=== PATIENT | female | born 1965 | race African-American/Black ===

== ENCOUNTER 2016-09-22 18:59 | Emergency (ER) | payer SELFPAY ==
[~2016-09-22] VITALS: Ht 152.4 cm; Wt 100.0 kg
[~2016-09-22 18:59] MED LIST: AMOXICILLIN500 MG PO; ASPIRIN81 MG PO; CYCLOBENZAPR10 MG PO; GABAPENTIN300 MG PO; HYDROCHLOROT12.5 MG PO; LIPITOR10 MG PO; LISINOP/HCTZ1 TA1 PO; NAPROSYN250 MG PO; NAPROSYN375 MG PO; NAPROSYN500 MG PO; NAPROXEN250 MG PO; NEURONTIN300 MG PO; PAXIL30 MG PO; PENICILLN VK500 MG PO; TRAZODONE50 MG PO; ULTRAM50 M1 PO
[2016-09-22] MEDS ORDERED: NEURONTIN600 MG PO (19:24)
[2016-09-22] MEDS ORDERED: BACLOFEN10 MG PO (19:28)
[2016-09-22] MEDS ORDERED: NOVOLOG MIX100 U/ML SC (19:28)
[2016-09-22] MEDS ORDERED: LORTAB 5/3255 MG PO (19:48)
[2016-09-22 19:59] VITALS: BP 154/89
== END 2016-09-22 20:09 | disposition home or self-care (01) | DRG 552 ==
LOC: ED 18:59
DX: M54.5 Low back pain (principal); I10 Essential (primary) hypertension; G89.29 Other chronic pain; M19.90 Unspecified osteoarthritis, unspecified site; E11.9 Type 2 diabetes mellitus without complications; Z79.4 Long term (current) use of insulin; Z86.73 Personal history of transient ischemic attack (TIA), and cerebral infarction without residual deficits

== ENCOUNTER 2016-10-12 12:45 | Emergency (ER) | payer OTHER ==
[~2016-10-12] VITALS: Ht 152.4 cm; Wt 110.0 kg
[~2016-10-12 12:45] MED LIST changes: +BACLOFEN10 MG PO; +LORTAB 5/3255 MG PO; +NEURONTIN600 MG PO; +NOVOLOG MIX100 U/ML SC
[2016-10-12 13:24] LABS: HEMATOCRIT 38.6 % (37.0-47.0); IMMATURE GRANULOCYTES 0.5 % (0.0-1.0); MEAN CELL VOLUME 87.5 fL CALC (80.0-100.0); MEAN CORPUSCULAR HGB 27.2 pG CALC (26.0-32.0); MEAN CORPUSCULAR HGB CONC 31.1 g/L CALC (32.0-36.0); NEUT# 10.2 thou/uL (2.00-7.15); RED BLOOD COUNT 4.41 mill/uL (4.20-5.60); RED CELL DISTRI WIDTH 13.7 % (11.5-15.5)
[2016-10-12 13:36] LABS: ALBUMIN 3.7 g/dL (3.2-5.0); ALKALINE PHOSPHATASE 101 u/l (38-126); AMYLASE 59 u/l (30-110); ANION GAP 13 (6-22 (CALC)); BILIRUBIN, TOTAL 0.3 mg/dL (0.0-1.4); BUN 17 mg/dL (7-17); BUN/CREATININE RATIO 27 (12-20 (CALC)); CALCIUM 8.9 mg/dL (8.4-10.2); CARBON DIOXIDE 32 mmol/l (22-30); CHLORIDE 99 mmol/l (95-108); CREATININE 0.6 mg/dL (0.5-1.0); GFR > 60 ML/MIN (>=60 (CALC)); GFR FOR AFR.AMER. > 60 ML/MIN (>=60 (CALC)); GLUCOSE 302 mg/dL (65-105); LIPASE 57 u/l (23-300); POTASSIUM 3.9 mmol/l (3.5-5.1); SGOT/AST 21 u/l (14-36); SGPT/ALT 23 u/l (9-52); SODIUM 140 mmol/l (137-146); TOTAL PROTEIN 6.9 g/dL (6.3-8.2)
[2016-10-12 13:48] LABS: MYOGLOBIN 10 ng/mL (0 - 62)
[2016-10-12] MEDS ORDERED: PREDNISONE10 MG PO (15:51)
[2016-10-12] MEDS ORDERED: LORTAB 5-325 MG1 TAB PO (15:51)
[2016-10-12 15:56] VITALS: BP 101/50
== END 2016-10-12 16:10 | disposition home or self-care (01) | DRG 392 ==
LOC: ED 12:45
PROVIDERS: Emergency Medicine
DX: R10.12 Left upper quadrant pain (principal); I10 Essential (primary) hypertension; M79.605 Pain in left leg; G89.29 Other chronic pain; M19.90 Unspecified osteoarthritis, unspecified site; E11.9 Type 2 diabetes mellitus without complications; R07.9 Chest pain, unspecified; Z79.4 Long term (current) use of insulin; Z86.73 Personal history of transient ischemic attack (TIA), and cerebral infarction without residual deficits
CPT/HCPCS: Q9967

== ENCOUNTER 2016-10-16 06:35 | Emergency (ER) | payer SELFPAY ==
[~2016-10-16] VITALS: Ht 152.4 cm; Wt 101.3 kg
[~2016-10-16 06:35] MED LIST changes: +LORTAB 5-325 MG1 TAB PO; +PREDNISONE10 MG PO
[2016-10-16] MEDS ORDERED: DILAUDID4 MG PO (07:22)
[2016-10-16 07:38] VITALS: BP 156/79
== END 2016-10-16 07:46 | disposition home or self-care (01) | DRG 93 ==
LOC: ED 06:35
DX: G89.29 Other chronic pain (principal); R10.12 Left upper quadrant pain

== ENCOUNTER 2016-11-01 09:56 | Emergency (ER) | payer OTHER ==
[~2016-11-01] VITALS: Ht 152.4 cm; Wt 100.0 kg
[~2016-11-01 09:56] MED LIST changes: +DILAUDID4 MG PO
[2016-11-01] MEDS ORDERED: PERCOCET 5/325M1 TAB PO (10:27)
[2016-11-01 10:52] VITALS: BP 156/93
== END 2016-11-01 11:10 | disposition home or self-care (01) | DRG 93 ==
LOC: ED 09:56
DX: G89.29 Other chronic pain (principal); M54.5 Low back pain; M62.838 Other muscle spasm

== ENCOUNTER 2016-12-26 19:17 | Emergency (ER) | payer SELFPAY ==
[~2016-12-26] VITALS: Ht 152.4 cm; Wt 101.4 kg
[~2016-12-26 19:17] MED LIST changes: +PERCOCET 5/325M1 TAB PO
[2016-12-26] MEDS ORDERED: PERCOCET 5/325M1 TAB PO (20:44)
[2016-12-26 21:04] VITALS: BP 175/79
== END 2016-12-26 21:15 | disposition home or self-care (01) | DRG 563 ==
LOC: ED 19:17
DX: S86.912A Strain of unspecified muscle(s) and tendon(s) at lower leg level, left leg, initial encounter (principal); I10 Essential (primary) hypertension; M54.6 Pain in thoracic spine; G89.29 Other chronic pain; M19.90 Unspecified osteoarthritis, unspecified site; E11.9 Type 2 diabetes mellitus without complications; M54.30 Sciatica, unspecified side; W18.30XA Fall on same level, unspecified, initial encounter; Y92.009 Unspecified place in unspecified non-institutional (private) residence as the place of occurrence of the external cause; Z86.73 Personal history of transient ischemic attack (TIA), and cerebral infarction without residual deficits

== ENCOUNTER 2017-01-17 18:34 | Emergency (ER) | payer SELFPAY ==
[~2017-01-17] VITALS: Ht 152.4 cm; Wt 101.1 kg
[2017-01-17] MEDS ORDERED: LEVEMIR100 UNIT/M SC (19:42)
[2017-01-17] MEDS ORDERED: LOSARTAN POT50 MG PO (19:44)
[2017-01-17] MEDS ORDERED: GLIPIZIDE10 MG PO (19:44)
[2017-01-17 21:30] VITALS: BP 137/71
== END 2017-01-17 21:30 | disposition home or self-care (01) | DRG 93 ==
LOC: ED 18:34
DX: G89.29 Other chronic pain (principal); M48.04 Spinal stenosis, thoracic region; M54.6 Pain in thoracic spine

== ENCOUNTER 2017-10-02 12:49 | Emergency (ER) | payer SELFPAY ==
[~2017-10-02] VITALS: Ht 152.4 cm; Wt 119.5 kg
[~2017-10-02 12:49] MED LIST changes: +GLIPIZIDE10 MG PO; +LEVEMIR100 UNIT/M SC; +LOSARTAN POT50 MG PO
[2017-10-02] MEDS ORDERED: LORTAB 7.57.5 MG PO (13:36)
[2017-10-02] MEDS ORDERED: FLEXERIL PO (13:36)
[2017-10-02 13:50] VITALS: BP 166/85
== END 2017-10-02 13:50 | disposition home or self-care (01) | DRG 93 ==
LOC: ED 12:49
DX: G89.29 Other chronic pain (principal); M54.5 Low back pain; E11.9 Type 2 diabetes mellitus without complications; I10 Essential (primary) hypertension; Z86.73 Personal history of transient ischemic attack (TIA), and cerebral infarction without residual deficits

== ENCOUNTER 2017-12-23 10:37 | Emergency (ER) | payer SELFPAY ==
[~2017-12-23] VITALS: Ht 152.4 cm; Wt 115.0 kg
[~2017-12-23 10:37] MED LIST changes: +FLEXERIL PO; +LORTAB 7.57.5 MG PO
[2017-12-23] MEDS ORDERED: PREDNISONE10 MG PO (10:47)
[2017-12-23 10:55] VITALS: BP 173/84
[2017-12-23] MEDS ORDERED: ASPERCREME LIDOCA41 TOP (12:52)
[2017-12-23] MEDS ORDERED: MOTRIN400 MG PO (12:52)
[2017-12-23] MEDS ORDERED: VOLTAREN1%GEL TOP (12:52)
[2017-12-23] MEDS ORDERED: ONDANSETRON4 MG PO (12:52)
== END 2017-12-23 13:05 | disposition home or self-care (01) | DRG 552 ==
LOC: ED 10:37
DX: M54.6 Pain in thoracic spine (principal); M47.814 Spondylosis without myelopathy or radiculopathy, thoracic region